=== PATIENT | male | born 1975 ===

== ENCOUNTER 2019-03-29 12:02 | Emergency (ER) | payer OTHER ==
[~2019-03-29] VITALS: Ht 190.5 cm; Wt 86.4 kg
[2019-03-29 12:04] VITALS: BP 130/62
[2019-03-29] MEDS ORDERED: KETOROLAC TROMETHAMINE 60 MG/2 ML VIAL IM ONE (13:15)
[2019-03-29] MEDS ORDERED: LIDOCAINE 5% TRANSDERMAL PATCH TD ONE (13:15)
[2019-03-29] MEDS ORDERED: CYCLOBENZAPRINE HCL 10 MG TABLET PO ONE (13:15)
== END 2019-03-29 14:25 | disposition home or self-care (01) ==
LOC: EMS 12:04
DX: M54.5 Low back pain (principal)
CPT/HCPCS: 96372; 99283; J1885